=== PATIENT | female | born 2000 | race Hispanic/Latino ===

== ENCOUNTER 2021-02-03 14:50 | Emergency (ER) | payer BC, OTHER ==
--- OUTSIDE RECORDS SUMMARY | 2021-02-03 14:53 | XMS REPORT | Continuity of Care Document ---
:2000 Author Organization [facility] t Address [address] [place] [address] [address] [place] [address] Care Team Providers Name Role Phone Steve CHERRY Attending Clinician STEVE Attending Clinician Unavailable Payers Payer Name Policy Type Policy Number Effective Date Expiration Date S ource Problems Condition Condition Condition Status Onset Resolution Last Treating Co mments Source Name Details Category Date Date Treatment Clinician Date No known No known Disease Unive rs active active ity of problems problems [facility] Allergies, Adverse Reactions, Alerts Allergy Allergy Status Severity Reaction(s) Onset Inactive Treating Comm ents Source Name Type Date Date Clinician NO KNOWN Drug Active Univers ALLERGIE Class ity of S [facility] Social History Social Habit Start Date Stop Date Quantity Comments Source Exposure to Not sure [facility] SARS-CoV-2 [facility] (event) Branch Alcohol intake 2020-07-12 2020-07-12 Current [facility] 00:00:00 00:00:00 non-drinker of [facility] alcohol [place] (finding) Tobacco use and 2020-07-12 2020-07-12 Never used Universit y of exposure 00:00:00 00:00:00 [facility] Sex Assigned At [birth year] Universit y of 00:00:00 00:00:00 [facility] Smoking Status Start Date Stop Date Source Never smoker [facility] Medications Ordered Filled Start Stop Current Ordering Indication Dosage Frequency Signature Comments Components Source Medication Medication Date Date Medication? Clinician (SIG) Name Name levonorgest Yes [id number] 1{tbl} Take 1 Univers rel-ethinyl 6-01 tablet by ity of estradiol 00:00: mouth [place] (LARISS[place]) 00 daily. Medical 0.1-20 Branch mg-mcg per tablet levonorgest Yes [id number] 1{tbl} Take 1 Univers rel-ethinyl 6-01 tablet by ity of estradiol 00:00: mouth [place] (LARISS[place]) 00 daily. Medical 0.1-20 Branch mg-mcg per tablet levonorgest Yes [id number] 1{tbl} Take 1 Univers rel-ethinyl 6-01 tablet by ity of estradiol 00:00: mouth [place] (LARISS[place]) 00 daily. Medical 0.1-20 Branch mg-mcg per tablet levonorgest 2020- No [id number] 1{tbl} Take 1 Univers rel-ethinyl 6-01 06-01 tablet by it y of estradiol 00:00: 00:00 mouth [place] (LARISSIA) 00 :00 daily. Medical 0.1-20 Branch mg-mcg per tablet levonorgest 2020- No [id number] 1{tbl} Take 1 Univers rel-ethinyl 6-01 06-01 tablet by it y of estradiol 00:00: 00:00 mouth [place] (LARISSIA) 00 :00 daily. Medical 0.1-20 Branch mg-mcg per tablet [place] Yes [id number] TAKE 1 Un julia 0.1-20 1-23 TABLET BY ity of mg-mcg per 00:00: MOUTH [place] tablet 00 EVERY DAY Medical Branch levonorgest 2018-02 2020- No [id number] 1{tbl} Take 1 Univers rel-ethinyl 1-25 -23 tablet by it y of estradiol 00:00: 00:00 mouth [place] (SRONYX) 00 :00 daily. Medical 0.1-20 Branch mg-mcg per tablet SRONYX Yes TAKE 1 Univers 0.1-20 9-16 TABLET BY ity of mg-mcg 00:00: MOUTH [place] tablet 00 EVERY DAY Medical Branch SRONYX 0 Yes TAKE 1 Univers 0.1-20 9-16 TABLET BY ity of mg-mcg 00:00: MOUTH [place] tablet 00 EVERY DAY Medical Branch levonorgest 2017-02 2019- No 1{tbl} Take 1 U nivers rel-ethinyl 0-12 09-16 tablet by it y of estradiol 00:00: 00:00 mouth [place] 0.1-20 00 :00 daily. Medical mg-mcg per Branch tablet levonorgest 2017-02 2019- No 1{tbl} Take 1 U nivers rel-ethinyl 0-12 -16 tablet by it y of estradiol 00:00: 00:00 mouth [place] 0.1-20 00 :00 daily. Medical mg-mcg per Branch tablet drospirenon 2019- No 1{tbl} Take 1 U nivers e-ethinyl 10-2016 tablet by ity of estradiol 00:00: 00:00 mouth [place] 3-0.02 mg 00 :00 daily. Medical per tablet Branch drospirenon 2019- No 1{tbl} Take 1 U nivers e-ethinyl 10-2016 tablet by ity of estradiol 00:00: 00:00 mouth [place] 3-0.02 mg 00 :00 daily. Medical per tablet Branch Vital Signs Vital Name Observation Time Observation Value Comments Source Systolic blood 2020-07-12 15:33:00 124 mm[Hg] [facility] Diastolic blood 2020-07-12 15:33:00 84 mm[Hg] [facility] Heart rate 2020-07-12 15:33:00 76 /min [facility] Body temperature 2020-07-12 15:33:00 36.67 Sheila [facility] Body height 2020-07-12 15:33:00 160 cm [facility] Body weight 2020-07-12 15:33:00 59.421 kg [facility] BMI 2020-07-12 15:33:00 23.21 kg/m2 [facility] Procedures Procedure Date / Time Performed Performing Clinician [facility] PAP SMEAR-LIQUID 2020-07-12 15:53:00 Sujatha Wilson [facility] Encounters Start End Encounter Admission Attending Care Care Encounter Source Date/Time Date/Time Type Type Clinicians Facility Department ID 2020-07-12 2020-07-12 Office ESTEVAN Wilson [id number] Univers 10:22:03 10:40:22 Visit [facility] [id number] [id number] [id number] [address] Office Building 2020-07-12 2020-07-12 Outpatient Sherlyn WILSON, [facility] [id number] Univers 10:30:00 10:30:00 HEMAMALINI [id number] ity [facility] 2020-07-12 2020-07-12 Outpatient Sherlyn WILSON [facility] [id number] Univers 10:30:00 10:30:00 HEMAMALINI ity [facility] 2020-05-23 2020-05-23 [id number] Univers 00:00:00 00:00:00 [place] [facility] [id number] [id number] [phone] [address] Office [facility] 2019-03-05 2019-03-05 [facility] [id number] Univers 00:00:00 00:00:00 [place] [facility] [id number] [id number] [phone] [address] Office Building 2018-10-28 2018-10-28 [facility] [id number] Univers 00:00:00 00:00:00 [place] [facility] [id number] [id number] [id number] [address] Office Building 2018-10-27 2018-10-27 Telephone Steve, [facility] [id number] Univers 00:00:00 00:00:00 [place] Health [id number] [id number] [id number] [address] Office Building 2018-10-20 2018-10-20 Refill Steve, [facility] [id number] Univers 00:00:00 00:00:00 Hem[place]al[place] SPECIALTY [id number] ity of CARE [id number] Timothy [facility] AT [phone] Ia jaime LUNA [address] [place] [address] Results This patient has no known results.
[2021-02-03 18:24] LABS: SARS-COV-2 RT PCR POSITIVE (NEGATIVE)
--- NOTE | 2021-02-03 18:36 | ER ---
Nurse's Notes [facility] Name: Kristyn Epps Age: 21 yrs Sex: Female : 2000 Arrival Date: 02/03/2021 Time: 14:57 Bed Waiting Private MD: Diagnosis: SARS-associated coronavirus as the cause of diseases classified elsewhere Presentation: 02/03 16:47 Chief complaint: Patient states: cough, congestion and fever since last night that is ss progressively worse today. "I feel like my chest is filled with mucus". I have a little sore throat but i think that's the drainage. Coronavirus screen: Vaccine status: Patient reports receiving the 2nd dose of the covid vaccine. Client denies travel out of the [place] in the last 14 days. Ebola Screen: Patient negative for fever greater than or equal to 101.5 degrees Fahrenheit, and additional compatible Ebola Virus Disease symptoms Patient denies exposure to infectious person. Patient denies travel to an Ebola-affected area in the 21 days before illness onset. Initial Sepsis Screen: Does the patient meet any 2 criteria? HR > 90 bpm. Does the patient have a suspected source of infection? Yes: Productive cough/pneumonia. 16:47 Method Of Arrival: Ambulatory ss 16:49 Risk Assessment: Do you want to hurt yourself or someone else? Patient reports no ss desire to harm self or others. Onset of symptoms was February 02, 2021. 16:49 Acuity: ADAMS 4 ss Triage Assessment: 16:49 General: Appears in no apparent distress. slender, well groomed, well developed, well ss nourished, Behavior is calm, cooperative, appropriate for age. Pain: Denies pain. 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 - Social history:: Smoking status: Patient denies any tobacco usage or history of. Screenin:49 Abuse screen: Denies threats or abuse. Denies injuries from another. Nutritional ss screening: No deficits noted. Tuberculosis screening: No symptoms or risk factors identified. Fall Risk None identified. Vital Signs: 16:47 BP 126 / 77; Pulse 101; Resp 18; Temp 98.6; Pulse Ox 100% ; Weight 60.33 kg; Height 5 ss ft. 3 in. (160.02 cm); 16:47 Body Mass Index 23.56 (60.33 kg, 160.02 cm) ED Course: 14:57 Patient arrived in ED. mr 16:49 Triage completed. ss 16:50 Arm band placed on right wrist. ss 18:27 King Danielle PA is PHCP. cp 18:28 Mandi Jimenez MD is Attending Physician. cp Administered Medications: No medications were administered Outcome: 18:35 Discharge ordered by . cp 18:38 Patient left the ED. Signatures: Cristina Leyva mr Rosalva Campbell, RN RN King Danielle PA PA cp
--- NOTE | 2021-02-03 18:36 | EDPHYS ---
Physician Documentation [facility] Name: Kristyn Epps Age: 21 yrs Sex: Female : 2000 Arrival Date: 02/03/2021 Time: 14:57 Bed Waiting Private MD: ED Physician Mandi Jimenez HPI: 02/03 18:32 This 21 yrs old Female presents to ER via Ambulatory with complaints of Covid cp Test, Fever, Congestion. 18:32 The patient or guardian reports cough, that is intermittent, congestion, sore throat. cp 18:32 Onset: The symptoms/episode began/occurred last night. Associated signs and symptoms: cp Pertinent negatives: chest pain, diarrhea, ear ache, fever, vomiting. Severity of symptoms: in the emergency department the symptoms are unchanged despite home interventions. 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 - Social history:: Smoking status: Patient denies any tobacco usage or history of. ROS: 18:32 Eyes: Negative for injury, pain, redness, and discharge. cp 18:32 Constitutional: Negative for fever. 18:32 ENT: Positive for rhinorrhea, sore throat, Negative for drainage from ear(s), ear pain, difficulty swallowing, difficulty handling secretions. 18:32 Respiratory: Positive for cough, Negative for shortness of breath, wheezing. 18:32 Abdomen/GI: Negative for vomiting, diarrhea, constipation. 18:32 Neuro: Negative for altered mental status, headache, weakness. 18:32 All other systems are negative. Exam: 18:33 Head/Face: Normocephalic, atraumatic. cp 18:33 Constitutional: The patient appears in no acute distress, alert, awake, non-toxic, well developed, well nourished. 18:33 Eyes: Periorbital structures: appear normal, Conjunctiva: normal, no exudate, no injection, Lids and lashes: appear normal, bilaterally. 18:33 ENT: External ear(s): are unremarkable, Nose: is normal, Posterior pharynx: Airway: no evidence of obstruction, patent. 18:33 Chest/axilla: Inspection: normal. 18:33 Cardiovascular: Rate: tachycardic, Rhythm: regular. 18:33 Respiratory: the patient does not display signs of respiratory distress, Respirations: normal, no use of accessory muscles, no retractions, labored breathing, is not present, Breath sounds: are clear throughout, no decreased breath sounds, no stridor, no wheezing. 18:33 Abdomen/GI: Exam negative for discomfort, distension, guarding, Inspection: abdomen appears normal. Vital Signs: 16:47 BP 126 / 77; Pulse 101; Resp 18; Temp 98.6; Pulse Ox 100% ; Weight 60.33 kg; Height 5 ss ft. 3 in. (160.02 cm); 16:47 Body Mass Index 23.56 (60.33 kg, 160.02 cm) ss MDM: 18:35 Patient medically screened. cp 18:35 Differential diagnosis: bronchitis, flu, URI, pneumonia. cp 18:35 Antibiotic administration: Not indicated, the patient has a suspected viral illness. cp Data reviewed: vital signs, nurses notes, lab test result(s), and as a result, I will discharge patient. ED course: VSS. Patient appears non-toxic and no signs of respiratory distress. Will discharge to home for continued monitoring. 12 16:52 Order name: Strep; Complete Time: 18:28 ss 02/03 16:58 Order name: COVID-19/FLU A+B (Document "Date of Onset" if Symptomatic); Complete Time: jr8 18:28 02/03 18:28 Interpretation: Abnormal: SARSCOV2 RT PCR POSITIVE. cp 02/03 17:19 Order name: Throat Culture EDMS Administered Medications: No medications were administered Disposition Summary: 02/03/21 18:35 Discharge Ordered Location: Home cp Problem: new cp Symptoms: are unchanged cp Condition: Stable cp Diagnosis - SARS-associated coronavirus as the cause of diseases classified elsewhere cp Followup: cp - With: Private Physician - When: 2 - 3 days - Reason: Worsening of condition Discharge Instructions: - Discharge Summary Sheet cp - COVID-19 cp - Things to Know about the COVID-19 Pandemic - [facility] cp - 10 Things You Can Do to Manage Your COVID-19 Symptoms at Home - [facility] cp - COVID-19: Quarantine vs. Isolation - [facility] cp - Prevent the Spread of COVID-19 if You Are Sick - CDC cp Forms: - Medication Reconciliation Form cp - Thank You Letter cp - Antibiotic Education cp - Prescription Opioid Use cp Addendum: 02/05/2021 18:51 Co-signature as Attending Physician, Mandi Jimenez MD PA/MANAGING SUPERVISOR's history reviewed, m a2 patient interviewed, and examined. I agree with assessment and care plan and confirm the diagnosis (es) above. Signatures: Dispatcher [employer] EDNV Rosalva Campbell RN RN ss King Danielle PA PA cp Alzahri, Mohammad, MD MD ma2
[2021-02-03 18:52] VITALS: BP 126/77; TEMP 98.6; O2SAT 100
== END 2021-02-03 18:38 | disposition home or self-care (01) ==
LOC: ER 14:50
DX: U07.1 COVID-19 (principal)
CPT/HCPCS: 87070; 87081; 0240U; 99281